=== PATIENT | male | born 1990 | race Caucasian/White ===

== ENCOUNTER 2017-10-03 14:06 | Emergency (ER) | payer BC ==
--- NOTE | 2017-10-03 14:32 | EDM.PDOCBH ---
ED HPI GENERAL MEDICAL PROBLEM - General Chief Complaint: Behavioral/Psych Stated Complaint: DEPRESSION Time Seen by Provider: 10/03/17 14:12 Source of Information: Reports: Patient History Limitations: Reports: No Limitations - History of Present Illness INITIAL COMMENTS - FREE TEXT/NARRATIVE: HISTORY AND PHYSICAL: Depression History of present illness: Patient is a 26-year-old male who presents to the emergency room with complaints of depression. Patient states that he has been for 9 years but within the last year, and now . He has been within the last 3 months. Since that time has had feelings of depression, sadness, insomnia and lack of motivation. Patient reports that he has seen a counselor at [facility] in the on 3 separate occasions, which he states has not been helping. He reports feelings of anxiety as he keeps thinking about his ex- and "if she is running around on me". Patient states "I just need something to knock me out second sleep for 3 or 4 days". He has no previous history of anxiety or depression. Has not taken any medications for anxiety/depression previously. He denies any thoughts of self- harm and does not have a plan. He denies any thoughts of harming others. Patient does have a friend at the bedside who seems concerned. States he does have a good support system. Review of systems: As per history of present illness and below otherwise all systems reviewed and negative. Past medical history: As per history of present illness and as reviewed below otherwise noncontributory. Surgical history: As per history of present illness and as reviewed below otherwise noncontributory. Social history: No reported history of drug or alcohol abuse. Family history: As per history of present illness and as reviewed below otherwise noncontributory. Physical exam: Gen.: Well-developed and well-nourished 26-year-old male. Alert and oriented. Nontoxic appearing and in no acute distress. HEENT: Atraumatic, normocephalic, pupils reactive, negative for conjunctival pallor or scleral icterus, mucous membranes moist, throat clear, neck supple, nontender, trachea midline. Lungs: Clear to auscultation, breath sounds equal bilaterally, chest nontender. Heart: S1S2, regular rate and rhythm with no overt murmurs Abdomen: Soft, nondistended, nontender. Negative for masses or hepatosplenomegaly. Negative for costovertebral tenderness. Pelvis: Stable nontender. Genitourinary: Deferred. Rectal: Deferred. Extremities: Atraumatic, negative for cords or calf pain. Neurovascular unremarkable. Neuro: Awake, alert, oriented. Cranial nerves II through XII unremarkable. Cerebellum unremarkable. Motor and sensory unremarkable throughout. Exam nonfocal. I informed the patient that he can get one tablet of Ativan while here, 1 mg. And I will dispense 5 tablets of 0.5 Ativan for home. We discussed that this is not solving the problem and he does need further mental health treatment. I encouraged him to continue using some counseling. Requested that the patient develop a plan after he is seen here today. He states he will call [facility] tomorrow morning to schedule an appointment with a primary care provider. At this time he will inquire about possibly an antidepressant and further medications for his anxiety. He is aware that he will not receive any further prescriptions through the emergency department, related to this issue. He voices reassurance that he will use these medications responsibly. His friend who is at the bedside states he is driving and they plan to spend the rest of the weekend together. Diagnostics: [] Therapeutics: Ativan Impression: Depression/anxiety Plan: 1. Please take this medication responsibility. 1 tab up to twice daily as needed. Be aware that this medication will cause drowsiness so do not take it while driving or needing to be functioning at work. You will not get refills of this medication through the emergency room. 2. As we discussed, you stated you a call [facility] tomorrow to set up an appointment with her primary care provider. If you tell the cw operator that you were seen in the emergency room, you usually can get in within 1-2 days. Inform them that you are needing to be reevaluated for depression. 3. If you should develop thoughts of self-harm or harming others, please return to the emergency department for further care. Definitive disposition and diagnosis as appropriate pending reevaluation and review of above. Duration: Week(s): - Related Data Allergies Allergy/AdvReac Type Severity Reaction Status Date / Time No Known Allergies Allergy Verified 10/03/17 14:28 Home Meds: Home Meds . [No Known Home Meds] 10/03/17 [History] ED ROS GENERAL - Review of Systems Review Of Systems: ROS reveals no pertinent complaints other than HPI. ED EXAM, BEHAVIORAL HEALTH - Physical Exam Exam: See Below COURSE, BEHAVIORAL HEALTH COMP - Course Vital Signs: Last Vital Signs Temp 98.3 F 10/03/17 14:28 Pulse 76 10/03/17 14:28 Resp 18 10/03/17 14:28 BP 142/74 H 10/03/17 14:28 Pulse Ox 96 10/03/17 14:28 Orders, Labs, Meds: Active Orders 24 hr Category Date Time Status LORazepam [Ativan] Med 10/03/17 14:38 Stop Req 1 mg IVPUSH ONETIME ONE LORazepam [Ativan] Med 10/03/17 14:39 Once 1 mg PO ONETIME ONE Medication Orders Lorazepam (Ativan) 1 mg PO ONETIME ONE Stop: 10/03/17 14:40 Medications Generic Name Dose Route Start Last Admin Trade Name Freq PRN Reason Stop Dose Admin Lorazepam 1 mg 10/03/17 14:39 Ativan PO 10/03/17 14:40 ONETIME ONE Discontinued Medications Generic Name Dose Route Start Last Admin Trade Name Freq PRN Reason Stop Dose Admin Lorazepam 1 mg 10/03/17 14:38 Ativan IVPUSH 10/03/17 14:39 ONETIME ONE Departure - Departure Time of Disposition: 14:59 Disposition: Home, Self-Care 01 Clinical Impression: Anxiety Depression Qualifiers: Depression Type: unspecified Qualified Code(s): F32.9 - Major depressive disorder, single episode, unspecified - Discharge Information Referrals: PCP,None [Primary Care Provider] - Forms: ED Department Discharge Additional Instructions: My general discharge The following information is given to patients seen in the emergency department who are being discharged to home. This information is to outline your options for follow-up care. We provide all patients seen in our emergency department with a follow-up referral. The need for follow-up, as well as the timing and circumstances, are variable depending upon the specifics of your emergency department visit. If you don't have a primary care physician on staff, we will provide you with a referral. We always advise you to contact your personal physician following an emergency department visit to inform them of the circumstance of the visit and for follow-up with them and/or the need for any referrals to a consulting specialist. The emergency department will also refer you to a specialist when appropriate. This referral assures that you have the opportunity for follow-up care with a specialist. All of these measure are taken in an effort to provide you with optimal care, which includes your follow-up. Under all circumstances we always encourage you to contact your private physician who remains a resource for coordinating your care. When calling for follow-up care, please make the office aware that this follow-up is from your recent emergency room visit. If for any reason you are refused follow-up, please contact the [facility] Emergency Department at and asked to speak to the emergency department charge nurse. [facility] [address] [place] [id number] [facility] [address] [place] [id number] 1. Please take this medication responsibility. 1 tab up to twice daily as needed. Be aware that this medication will cause drowsiness so do not take it while driving or needing to be functioning at work. You will not get refills of this medication through the emergency room. 2. As we discussed, you stated you a call [facility] or [facility] on Thursday to set up an appointment with her primary care provider. If you tell the cw operator that you were seen in the emergency room, you usually can get in within 1-2 days. Inform them that you are needing to be reevaluated for depression. 3. If you should develop thoughts of self-harm or harming others, please return to the emergency department for further care. - My Orders Last 24 Hours: My Active Orders 10/03/17 14:38 LORazepam [Ativan] 1 mg IVPUSH ONETIME ONE 10/03/17 14:39 LORazepam [Ativan] 1 mg PO ONETIME ONE - Assessment/Plan Last 24 Hours: My Active Orders 10/03/17 14:38 LORazepam [Ativan] 1 mg IVPUSH ONETIME ONE 10/03/17 14:39 LORazepam [Ativan] 1 mg PO ONETIME ONE
[2017-10-03] MEDS ORDERED: LORazepam 2 MG/ML SDV IVPUSH ONE (14:38)
[2017-10-03] MEDS ORDERED: LORazepam 1 MG Tab PO ONE (14:39)
== END 2017-10-03 15:34 | disposition home or self-care (01) ==
LOC: MW.ED 14:06
DX: F41.9 Anxiety disorder, unspecified (principal); F32.9 Major depressive disorder, single episode, unspecified
CPT/HCPCS: 99284; A9270

== ENCOUNTER 2017-10-30 14:21 | Emergency (ER) | payer BC ==
--- NOTE | 2017-10-30 16:13 | EDM.PDOC ---
ED HPI GENERAL MEDICAL PROBLEM - General Chief Complaint: General Stated Complaint: TOOTHACHE Time Seen by Provider: 10/30/17 16:05 Source of Information: Reports: Patient History Limitations: Reports: No Limitations - History of Present Illness INITIAL COMMENTS - FREE TEXT/NARRATIVE: HISTORY AND PHYSICAL: History of present illness: [Comes to the emergency room complaining of pain to his left upper posterior teeth. States the tooth is broken and is now infected. He has a long history of cavities and dental infections. He is unable to find a local dentist who will accept his insurance. Has watery over the past week he's noticed increased pain sensitivity to hot and cold and swelling to his gums and now his cheek. Denies earaches sore throat runny nose. No fever or chills. No abdominal pain nausea vomiting.] Review of systems: As per history of present illness and below otherwise all systems reviewed and negative. Past medical history: As per history of present illness and as reviewed below otherwise noncontributory. Surgical history: As per history of present illness and as reviewed below otherwise noncontributory. Social history: No reported history of drug or alcohol abuse. Family history: As per history of present illness and as reviewed below otherwise noncontributory. Physical exam: HEENT: Atraumatic, normocephalic. Tooth #1 and #2 show decay and cavities. Gums are erythematous and swollen. TTP. L cheek is mildly swollen. Neck swollen. No lymphadenopathy. Lungs: Clear to auscultation, breath sounds equal bilaterally. Heart: S1S2, regular. Neuro: Awake, alert, oriented. Exam nonfocal. Impression: [dental pain] Plan: [Rx is written for ibuprofen 800 mg #30 sig 1 by mouth 3 times a day 0 refills, amoxicillin 875 mg #20 sig one by mouth twice a day 0 refills. Establish care with a local dentist.] Definitive disposition and diagnosis as appropriate pending reevaluation and review of above. left upper Pain Score (Numeric/FACES): 2 - Related Data Allergies Allergy/AdvReac Type Severity Reaction Status Date / Time No Known Allergies Allergy Verified 10/30/17 15:26 Home Meds: Home Meds . [No Known Home Meds] 10/03/17 [History] Past Medical History - Past Health History Medical/Surgical History: Denies Medical/Surgical History - Past Surgical History GI Surgical History: Reports: Hernia Repair/Other Social & Family History - Family History Family Medical History: Noncontributory - Tobacco Use Smoking Status *Q: Never Smoker - Recreational Drug Use Recreational Drug Use: No ED ROS GENERAL - Review of Systems Review Of Systems: ROS reveals no pertinent complaints other than HPI. ED EXAM, GENERAL - Physical Exam Exam: See Below Course - Vital Signs Last Recorded V/S: Last Vital Signs Temp 97.6 F 10/30/17 15:27 Pulse 83 10/30/17 15:27 Resp 18 10/30/17 15:27 BP 126/70 10/30/17 15:27 Pulse Ox 97 10/30/17 15:27 Departure - Departure Time of Disposition: 16:15 Disposition: Home, Self-Care 01 Condition: Good Clinical Impression: Dental abscess - Discharge Information Instructions: Dental Abscess, [id number] Referrals: PCP,None [Primary Care Provider] - Forms: ED Department Discharge Additional Instructions: The following information is given to patients seen in the emergency department who are being discharged to home. This information is to outline your options for follow-up care. We provide all patients seen in our emergency department with a follow-up referral. The need for follow-up, as well as the timing and circumstances, are variable depending upon the specifics of your emergency department visit. If you don't have a primary care physician on staff, we will provide you with a referral. We always advise you to contact your personal physician following an emergency department visit to inform them of the circumstance of the visit and for follow-up with them and/or the need for any referrals to a consulting specialist. The emergency department will also refer you to a specialist when appropriate. This referral assures that you have the opportunity for follow-up care with a specialist. All of these measure are taken in an effort to provide you with optimal care, which includes your follow-up. Under all circumstances we always encourage you to contact your private physician who remains a resource for coordinating your care. When calling for follow-up care, please make the office aware that this follow-up is from your recent emergency room visit. If for any reason you are refused follow-up, please contact the [facility] emergency department at and asked to speak to the emergency department charge nurse. Follow-up with a dentist for evaluation of your infected tooth. Ice packs may help for pain. Ibuprofen every 8 hours as needed for discomfort. He may alternate Tylenol with ibuprofen. Return to ER as needed as discussed.
== END 2017-10-30 16:30 | disposition home or self-care (01) ==
LOC: MW.ED 14:21
DX: K04.7 Periapical abscess without sinus (principal); K02.9 Dental caries, unspecified
CPT/HCPCS: 99282